=== PATIENT | male | born 1940 | race Caucasian/White ===

== ENCOUNTER 2017-08-14 11:11 | Day surgery (SDC) | payer MEDICARE ==
[~2017-08-14] VITALS: Ht 193 cm; Wt 117.5 kg
[~2017-08-14 11:11] MED LIST: ADVANCED JOINT; ALBU90OI6 INH; AMLO5 PO; AMOX875 PO; ASCO500 PO; ASPI81CH PO; ASPI81EC PO; AZIT500 PO; Aspir-Low81 MG PO; CYAN1000; FISH1000 PO; FLUSAL2505 IH; GABA100; GUAI600T33 PO; HYDACE5 PO; HYDCHL12.5 PO; LISI20 PO; LOSA50 PO; LOSARTAN POTAS100 MG PO; OMEP20ER PO; OXYACE5T PO; PRAV20 PO; Pravachol40 MG PO; SERT25; SIMV40 PO; TERBINAFINE
[2017-08-14] MEDS ORDERED: LOSA50 PO (12:26)
[2017-08-14] MEDS ORDERED: VITAMIN D31000 UNIT PO (12:27)
[2017-08-14] MEDS ORDERED: B-121000 MC2 PO (12:27)
[2017-08-14] MEDS ORDERED: Daily Multiple1 EACH PO (12:28)
[2017-08-14] MEDS ORDERED: ASCO500 PO (12:28)
== END 2017-08-14 16:25 | disposition home or self-care (01) ==
LOC: ORSCSDS 11:11
PROVIDERS: Orthopaedic Surgery
PROC: 0RUT07Z Supplement Left Carpometacarpal Joint with Autologous Tissue Substitute, Open Approach (ICD-10-PCS; principal; 2017-08-14 12:45)
PROC: 0PBN0ZZ Excision of Left Carpal, Open Approach (ICD-10-PCS; principal; 2017-08-14 12:45)
PROC: 0LB60ZZ Excision of Left Lower Arm and Wrist Tendon, Open Approach (ICD-10-PCS; principal; 2017-08-14 12:45)
PROC: 3E0U33Z Introduction of Anti-inflammatory into Joints, Percutaneous Approach (ICD-10-PCS; principal; 2017-08-14 12:45)
DX: M18.12 Unilateral primary osteoarthritis of first carpometacarpal joint, left hand (principal); I10 Essential (primary) hypertension; J44.9 Chronic obstructive pulmonary disease, unspecified; G47.33 Obstructive sleep apnea (adult) (pediatric); J45.909 Unspecified asthma, uncomplicated; Z79.899 Other long term (current) drug therapy
CPT/HCPCS: 76998; C1713; J0690; J1885; J2250; J3010; J3301; J7120

== ENCOUNTER 2018-07-30 08:01 | Day surgery (SDC) | payer MEDICARE ==
[~2018-07-30] VITALS: Ht 190.5 cm; Wt 117.9 kg
[~2018-07-30 08:01] MED LIST changes: +Aspirin EC81 MG PO; +B-121000 MC2 PO; +Daily Multiple1 EACH PO; +Hydrochloroth12.5 MG PO; +VITAMIN D31000 UNIT PO; +[UNRECOGNIZED DRUG - OTHER]
[2018-07-30] MEDS ORDERED: ASCO500 PO (09:08)
[2018-07-30] MEDS ORDERED: MOVE FREE JOIN1 EACH PO (09:09)
[2018-07-30] MEDS ORDERED: CYAN500 PO (09:09)
[2018-07-30] MEDS ORDERED: CHOL10002 PO (09:10)
[2018-07-30] MEDS ORDERED: Multivitamin1 EAC1 PO (09:10)
--- NOTE | 2018-07-30 12:13 | NUR ---
07/30/18 1214 Lali Ramos SITTING IN CHAIR W/ BROOKS AT HIS SIDE. ARM UP ON PILLOW AND ICE PACK IN PLACE. MEDICATING PT FOR PAIN, DRINKING COFFE, DENIED NAUSEA. VSS AND PT TALKING WITH HIS DOSESNT APPEAR DISTRESSED. DSG C/D/I
== END 2018-07-30 13:08 | disposition home or self-care (01) ==
LOC: ORSCSDS 08:01
PROVIDERS: Orthopaedic Surgery
PROC: 0LX50ZZ Transfer Right Lower Arm and Wrist Tendon, Open Approach (ICD-10-PCS; principal; 2018-07-30 09:30)
DX: M18.11 Unilateral primary osteoarthritis of first carpometacarpal joint, right hand (principal); I10 Essential (primary) hypertension; Z79.899 Other long term (current) drug therapy
CPT/HCPCS: 82947; C1713; J0690; J1100; J2405; J3010; J7120

== ENCOUNTER 2019-08-21 16:45 | Emergency (ER) | payer MEDICARE ==
[~2019-08-21] VITALS: Ht 190.5 cm; Wt 117.9 kg
[~2019-08-21 16:45] MED LIST changes: +CHOL10002 PO; +CYAN500 PO; +MOVE FREE JOIN1 EACH PO; +Multivitamin1 EAC1 PO
[2019-08-21] MEDS ORDERED: Norco 5-325 Ta1 EACH PO (20:10)
== END 2019-08-21 20:52 | disposition home or self-care (01) ==
LOC: ER 16:45
DX: S40.022A Contusion of left upper arm, initial encounter (principal); M79.18 Myalgia, other site; I10 Essential (primary) hypertension; E78.5 Hyperlipidemia, unspecified; J43.9 Emphysema, unspecified; Z23 Encounter for immunization; Z79.899 Other long term (current) drug therapy; Z79.82 Long term (current) use of aspirin; Z87.891 Personal history of nicotine dependence; W19.XXXA Unspecified fall, initial encounter
CPT/HCPCS: 73030; 90471; 90714; 99283-25

== ENCOUNTER 2020-04-20 18:24 | Emergency (ER) | payer MEDICARE ==
[~2020-04-20] VITALS: Ht 193 cm; Wt 117.9 kg
[~2020-04-20 18:24] MED LIST changes: +DONE10 PO; +MONT10T PO; +Norco 5-325 Ta1 EACH PO
== END 2020-04-20 22:35 | disposition home or self-care (01) ==
LOC: ER 18:24
DX: S01.21XA Laceration without foreign body of nose, initial encounter (principal); S61.012A Laceration without foreign body of left thumb without damage to nail, initial encounter; S29.012A Strain of muscle and tendon of back wall of thorax, initial encounter; S50.02XA Contusion of left elbow, initial encounter; S70.01XA Contusion of right hip, initial encounter; S20.211A Contusion of right front wall of thorax, initial encounter; I10 Essential (primary) hypertension; J43.9 Emphysema, unspecified; E78.5 Hyperlipidemia, unspecified; Z79.82 Long term (current) use of aspirin; Z79.899 Other long term (current) drug therapy; Z87.891 Personal history of nicotine dependence; W01.198A Fall on same level from slipping, tripping and stumbling with subsequent striking against other object, initial encounter; Y92.002 Bathroom of unspecified non-institutional (private) residence as the place of occurrence of the external cause
CPT/HCPCS: 12002; 70450; 71045; 72070; 72125; 73080; 73130; 73502; 96374-59; 99284-25; A9270; J3010

== ENCOUNTER 2020-12-24 09:40 | Day surgery (SDC) | payer MEDICARE ==
[~2020-12-24] VITALS: Ht 190.5 cm; Wt 116.1 kg
[2020-12-24] MEDS ORDERED: Aspirin EC81 MG (10:33)
[2020-12-24] MEDS ORDERED: ZOLOFT100 M1 (10:33)
== END 2020-12-24 12:00 | disposition home or self-care (01) ==
LOC: ORSCSDS 09:40
PROVIDERS: Internal Medicine Gastroenterology
PROC: 0DBL8ZX Excision of Transverse Colon, Via Natural or Artificial Opening Endoscopic, Diagnostic (ICD-10-PCS; principal; 2020-12-24 11:00)
PROC: 0DBK8ZX Excision of Ascending Colon, Via Natural or Artificial Opening Endoscopic, Diagnostic (ICD-10-PCS; principal; 2020-12-24 11:00)
DX: Z12.11 Encounter for screening for malignant neoplasm of colon (principal); Z86.010 Personal history of colon polyps; D12.3 Benign neoplasm of transverse colon; D12.2 Benign neoplasm of ascending colon; K64.8 Other hemorrhoids; G47.30 Sleep apnea, unspecified; E66.9 Obesity, unspecified; Z68.33 Body mass index [BMI] 33.0-33.9, adult; Z87.891 Personal history of nicotine dependence; I10 Essential (primary) hypertension; J45.909 Unspecified asthma, uncomplicated; Z79.82 Long term (current) use of aspirin; Z79.899 Other long term (current) drug therapy
CPT/HCPCS: 88305; J2704; J7120

== ENCOUNTER 2022-06-28 12:40 | Inpatient (IN) | payer OTHER, MEDICARE ==
[~2022-06-28] VITALS: Ht 182.9 cm; Wt 103.5 kg
[~2022-06-28 12:40] MED LIST changes: -DONE10 PO; +DONEPEZIL HCL10 MG PO; +HYDCHL25 PO; -Hydrochloroth12.5 MG PO; +ZOLOFT100 M1 PO
[2022-06-28 14:59] LABS: BASOPHILS ABSOLUTE AUTO 0.03 K/mm3 (0.00-0.23); BASOPHILS PERCENT AUTO 0 % (0-2); EOSINOPHILS ABSOLUTE AUTO 0.04 K/mm3 (0.00-0.68); EOSINOPHILS PERCENT AUTO 0 % (0-6); Hemoglobin 12.3 g/dL (13.5-17.5); IMMATURE GRAN ABSOLUTE AUTO 0.04 K/mm3 (0.00-0.10); IMMATURE GRAN PERCENT AUTO 0 % (0-1); LYMPHOCYTES PERCENT AUTO 17 % (21-46); MONOCYTES ABSOLUTE AUTO 1.05 K/mm3 (0.16-1.47); MONOCYTES PERCENT AUTO 10 % (4-13); Mean Corpuscular HGB 30.8 pg (26.0-34.0); Mean Corpuscular HGB Conc 33.2 g/dL (31.5-36.5); Mean Corpuscular Volume 93 fL (80-100); Mean Platelet Volume 9.8 fL (9.1-12.4); NEUTROPHILS ABSOLUTE AUTO 7.68 K/mm3 (1.96-9.15); NEUTROPHILS PERCENT AUTO 72 % (41-73); Platelet Count 216 K/mm3 (150-400); RDW Coefficient Variation 13.1 % (11.7-14.2); Red Blood Cell Count 3.99 M/mm3 (4.30-5.90); White Blood Cell Count 10.64 K/mm3 (4.00-11.30)
[2022-06-28 15:02] LABS: Base Excess Venous 2.9 mmol/L; Bicarbonate Venous 26.6 mmol/L (24.0-30.0); PCO2 Venous 42.6 mmHg (38-42); PO2 Venous 93.9 mmHg (38-42); pH Blood Venous 7.42 (7.34-7.37)
[2022-06-28 15:55] LABS: Influenza A, PCR NEGATIVE (NEGATIVE); Influenza B, PCR NEGATIVE (NEGATIVE); Resp Syncytial Virus, PCR NEGATIVE (NEGATIVE)
[2022-06-28 16:17] LABS: Source, Urine Clean Catch
[2022-06-28 16:20] LABS: Appearance, Urine Clear (Clear); Bilirubin, Urine Neg (Neg); Blood, Urine Neg (Neg); Color, Urine Yellow (P-Yellow); Glucose Qualitative, Urine Neg (Neg); Ketones, Urine 3+ (Neg); Leukocyte Esterase, Urine 1+ (Neg); Nitrite, Urine Neg (Neg); Protein, Urine 1+ (Neg); Specific Gravity, Urine 1.025 (1.003-1.022); Urobilinogen, Urine NORM (Normal)
[2022-06-28 16:27] LABS: SARS-Cov-2 (COVID-19) PCR, MMC POSITIVE (NEGATIVE)
[2022-06-28 16:30] LABS: Red Blood Cells, Urine 0-2 /hpf (0-2); Squamous Epithelial Cells Not Seen /hpf (Few); White Blood Cells, Urine 0-2 /hpf (0-5)
[2022-06-28 16:31] LABS: Bacteria Few /hpf; Renal Epithelial Rare /hpf (0-Rare)
[2022-06-28] MEDS ORDERED: TAMS.4ER PO (21:36)
[2022-06-28] MEDS ORDERED: METF500 PO (21:37)
[2022-06-29 00:28] LABS: Albumin, Blood 2.8 g/dL (3.4-5.0); Albumin/Globulin Ratio 0.6 (0.8-1.8); Bilirubin, Total 0.5 mg/dL (0.1-1.0); Bun/Creatinine Ratio 23.5 (12.0-20.0); Calcium, Blood 8.5 mg/dL (8.5-10.1); Creatinine, Blood 0.77 mg/dL (0.60-1.20); Globulin, Blood 4.4 g/dL (2.2-4.0); Potassium, Blood 4.4 mmol/L (3.5-5.5); Total Protein, Blood 7.2 g/dL (6.4-8.2)
--- NOTE | 2022-06-29 06:09 | NUR ---
SHIFT SUMMARY PT ADMITTED AT BEGINNING OF SHIFT- PT A&O X 2- PT CONFUSED AT BASELINE- CHARGE NURSE SPOKE WITH RE: ADMISSION QUESTIONS- NOTIFIED CN THAT PT DID NOT RECEIVE FLU VACCINE THIS SEASON AND REQUESTED PT TO GET VACCINE- GAVE IN RIGHT DELTOID - PT TOLERATED WELL, IV INFUSING AT 75ML/HR - PT USED CALL LIGHT IN THE NIGHT TO USE URINAL, PT BED LOW POSITION, CALL LIGHT WITHIN REACH, BED ALARM IN PLACE
[2022-06-29 06:46] LABS: BASOPHILS ABSOLUTE AUTO 0.01 K/mm3 (0.00-0.23); BASOPHILS PERCENT AUTO 0 % (0-2); EOSINOPHILS PERCENT AUTO 0 % (0-6); Hematocrit 34.7 % (37.0-53.0); Hemoglobin 11.4 g/dL (13.5-17.5); IMMATURE GRAN ABSOLUTE AUTO 0.01 K/mm3 (0.00-0.10); IMMATURE GRAN PERCENT AUTO 0 % (0-1); LYMPHOCYTES ABSOLUTE AUTO 0.67 K/mm3 (0.84-5.20); LYMPHOCYTES PERCENT AUTO 10 % (21-46); MONOCYTES ABSOLUTE AUTO 0.72 K/mm3 (0.16-1.47); MONOCYTES PERCENT AUTO 11 % (4-13); Mean Corpuscular HGB 30.4 pg (26.0-34.0); Mean Corpuscular HGB Conc 32.9 g/dL (31.5-36.5); Mean Corpuscular Volume 93 fL (80-100); NEUTROPHILS PERCENT AUTO 79 % (41-73); Platelet Count 190 K/mm3 (150-400); RDW Coefficient Variation 13.2 % (11.7-14.2); RDW Standard Deviation 44.7 fL (35.1-46.3); Red Blood Cell Count 3.75 M/mm3 (4.30-5.90); White Blood Cell Count 6.71 K/mm3 (4.00-11.30)
--- NOTE | 2022-06-29 16:47 | NUR ---
PT AOX2 WITH CONFUSION AT TIMES HIS WILL NOT KNOW WHERE HE IS OR IF HE EVEN HAS A . PT'S STATES THIS HAPPEN'S AT HOME WELL. PT IS IMPULSIVE AND WILL GET UP AND AMBULATE TO RESTROOM WITHOUT CALLING SO BED ALARM IS IN PLACE. PT DOES AMBULATE BETTER WITH WALKER. PT IS RESTING IN BED AT THIS TIME WILL CONTINUE TO MONITOR.
--- NOTE | 2022-06-30 03:32 | NUR ---
SHIFT SUMMARY PT ORIENTED TO SELF, IMPULSIVE, VERY RESTLESS. BED ALARM ON, UNABLE TO CORRECTLY USE CALL LIGHT. ADMINISTERED PRN SEROQUEL WITH NO EFFECT. PT PULLING OFF OXYGEN MULTIPLE TIMES. ON 3LO2, DENIES ANY SOB/COUGH. AMBULATING WELL SBA FWW. PT REPORTING BACK PAIN, ADMINISTERED PRN TYLENOL PER PT DIDNT HELP. ADMINISTERED PRN FENTANYL.
[2022-06-30 08:14] LABS: BASOPHILS ABSOLUTE AUTO 0.01 K/mm3 (0.00-0.23); BASOPHILS PERCENT AUTO 0 % (0-2); EOSINOPHILS ABSOLUTE AUTO 0.01 K/mm3 (0.00-0.68); EOSINOPHILS PERCENT AUTO 0 % (0-6); Hematocrit 37.1 % (37.0-53.0); Hemoglobin 12.3 g/dL (13.5-17.5); IMMATURE GRAN ABSOLUTE AUTO 0.04 K/mm3 (0.00-0.10); IMMATURE GRAN PERCENT AUTO 0 % (0-1); LYMPHOCYTES PERCENT AUTO 10 % (21-46); MONOCYTES PERCENT AUTO 14 % (4-13); Mean Corpuscular HGB 30.4 pg (26.0-34.0); Mean Corpuscular HGB Conc 33.2 g/dL (31.5-36.5); Mean Corpuscular Volume 92 fL (80-100); Mean Platelet Volume 10.2 fL (9.1-12.4); NEUTROPHILS ABSOLUTE AUTO 7.93 K/mm3 (1.96-9.15); NEUTROPHILS PERCENT AUTO 76 % (41-73); Platelet Count 211 K/mm3 (150-400); RDW Coefficient Variation 13.2 % (11.7-14.2); RDW Standard Deviation 44.4 fL (35.1-46.3); Red Blood Cell Count 4.04 M/mm3 (4.30-5.90); White Blood Cell Count 10.39 K/mm3 (4.00-11.30)
[2022-06-30 08:29] LABS: Creatinine, Blood 0.81 mg/dL (0.60-1.20); Potassium, Blood 3.9 mmol/L (3.5-5.5)
--- NOTE | 2022-06-30 16:47 | NUR ---
DAYSHIFT SUMMARY Patient doing well today, continues to complain of lower back pain. Transitioned to PO pain meds today. IV Remdesivir administred today. IV in left forearm infiltrated, inserted new IV in right forearm. Patient worked with therapy today, ambulating well w/ 1x SBA. Vitals stable, plan is to continue IV Remdesivir & control pain with PO meds, possible discharge home on sunday.
--- NOTE | 2022-07-01 03:15 | NUR ---
SHIFT SUMMARY NO OVERNIGHT EVENTS. PT MORE CALM AND COMFORTABLE, ORIENTED X2. LESS IMPULSIVE THIS SHIFT ALTHOUGH STILL NOT USING CALL LIGHT. PT RECIEVING NORCO FOR BACK PAIN, APPEARS TO HAVE BETTER PAIN CONTROL. 0230 PT REQUESTING SOMETHING TO SLEEP, ADMISTERED PRN SEROQUEL. PT USING URINAL AND AMBULATING SBA INTO BATHROOM. REMAINS ON ROOM AIR. CALL LIGHT IN REACH, NEEDS FREQUENT ROUNDING TO ASSIST PT WITH NEEDS.
[2022-07-01 05:07] LABS: BASOPHILS ABSOLUTE AUTO 0.01 K/mm3 (0.00-0.23); BASOPHILS PERCENT AUTO 0 % (0-2); EOSINOPHILS ABSOLUTE AUTO 0.02 K/mm3 (0.00-0.68); EOSINOPHILS PERCENT AUTO 0 % (0-6); Hematocrit 36.6 % (37.0-53.0); Hemoglobin 12.3 g/dL (13.5-17.5); IMMATURE GRAN ABSOLUTE AUTO 0.02 K/mm3 (0.00-0.10); IMMATURE GRAN PERCENT AUTO 0 % (0-1); LYMPHOCYTES ABSOLUTE AUTO 1.42 K/mm3 (0.84-5.20); LYMPHOCYTES PERCENT AUTO 19 % (21-46); MONOCYTES PERCENT AUTO 15 % (4-13); Mean Corpuscular HGB 30.4 pg (26.0-34.0); Mean Corpuscular HGB Conc 33.6 g/dL (31.5-36.5); Mean Corpuscular Volume 91 fL (80-100); Mean Platelet Volume 9.9 fL (9.1-12.4); NEUTROPHILS ABSOLUTE AUTO 4.81 K/mm3 (1.96-9.15); NEUTROPHILS PERCENT AUTO 65 % (41-73); Platelet Count 215 K/mm3 (150-400); RDW Coefficient Variation 13.2 % (11.7-14.2); RDW Standard Deviation 43.9 fL (35.1-46.3); Red Blood Cell Count 4.04 M/mm3 (4.30-5.90); White Blood Cell Count 7.38 K/mm3 (4.00-11.30)
[2022-07-01 05:25] LABS: Bun/Creatinine Ratio 28.5 (12.0-20.0); Calcium, Blood 9.4 mg/dL (8.5-10.1); Creatinine, Blood 0.84 mg/dL (0.60-1.20); Potassium, Blood 3.9 mmol/L (3.5-5.5)
[2022-07-01] MEDS ORDERED: Norco 5-325 Ta1 EACH PO (12:37)
--- NOTE | 2022-07-01 16:17 | NUR ---
DISCHARGE SUMMARY: PATIENT PAIN CONTROLLED THROUGHOUT THE SHIFT WITH REPOSITIONING AND PAIN MEDICATION. PATIENT AMBULATORY TO THE BATHROOM WITH FWW AND GB. PATIENT DENIED SHORTNESS OF BREATH AT REST OR WITH MOVEMENT. PATIENT REPORTED FEELING WELL ENOUGH TO GO HOME. PATIENT READY FOR DISCHARGE. DISCHARGE RX FAXED TO [facility] PER REQUEST. HARD RX HANDED TO THE . DISCUSSED DISCHARGE RX FOR CALCITONIN PER PATIENT'S 'S REQUEST WITH DR. MEMBRENO. ORDER FAXED TO [facility]. PATIENT DISCHARGE INSTRUCTIONS AND EDUCATION PROVIDED TO THE AND PATIENT. ALL QUESTIONS AND CONCERNS ADDRESSED AT THIS TIME. PATIENT DISCHARGED IN WHEELCHAIR WITH AND STRIKE PLATE ATTACHER AT SIDE. PATIENT STABLE AT TIME OF DISCHARGE.
[2022-07-05] MEDS ORDERED: IBUP800 PO (13:52)
== END 2022-07-01 16:04 | disposition home health service (06) | DRG 177 ==
LOC: ER 12:40 → MEDS 17:46
PROVIDERS: Family Medicine; Student in an Organized Health Care Education/Training Program; ADMIT Internal Medicine
PROC: XW033E5 Introduction of Remdesivir Anti-infective into Peripheral Vein, Percutaneous Approach, New Technology Group 5 (ICD-10-PCS; principal; 2022-06-28)
PROC: 3E0333Z Introduction of Anti-inflammatory into Peripheral Vein, Percutaneous Approach (ICD-10-PCS; 2022-06-28)
PROC: 8E0ZXY6 Isolation (ICD-10-PCS; 2022-06-28)
PROC: 3E02340 Introduction of Influenza Vaccine into Muscle, Percutaneous Approach (ICD-10-PCS; 2022-06-28)
DX: U07.1 COVID-19 (principal); J12.82 Pneumonia due to coronavirus disease 2019; J96.01 Acute respiratory failure with hypoxia; M80.88XA Other osteoporosis with current pathological fracture, vertebra(e), initial encounter for fracture; E11.9 Type 2 diabetes mellitus without complications; I10 Essential (primary) hypertension; F03.90 Unspecified dementia, unspecified severity, without behavioral disturbance, psychotic disturbance, mood disturbance, and anxiety; J43.9 Emphysema, unspecified; J45.909 Unspecified asthma, uncomplicated; E78.5 Hyperlipidemia, unspecified; G47.30 Sleep apnea, unspecified; I71.43 Infrarenal abdominal aortic aneurysm, without rupture; R29.6 Repeated falls; K21.9 Gastro-esophageal reflux disease without esophagitis; M47.896 Other spondylosis, lumbar region; Z96.653 Presence of artificial knee joint, bilateral; Z96.611 Presence of right artificial shoulder joint; W18.30XA Fall on same level, unspecified, initial encounter; Z23 Encounter for immunization; Z79.899 Other long term (current) drug therapy; Z79.82 Long term (current) use of aspirin; Z87.891 Personal history of nicotine dependence; Z90.49 Acquired absence of other specified parts of digestive tract; Z98.890 Other specified postprocedural states; Z87.820 Personal history of traumatic brain injury; Z87.19 Personal history of other diseases of the digestive system; Z79.84 Long term (current) use of oral hypoglycemic drugs
CPT/HCPCS: 0241U; 36415; 51701; 70450; 71045; 72131; 80048; 80053; 81001; 82803; 82947; 83735; 83880; 84145; 84484; 85025; 87086; 90686; 93005; 93010; 94644; 94664; 96372-59; 96374-59; 96375-59; 97110; 97162; 97165; 97530; 97535; 99285-25; A9270; G0008; J0248; J1100; J1650; J1815; J1885; J3010; J7030; J7050